=== PATIENT | male | born 1990 | race Caucasian/White ===

== ENCOUNTER 2022-03-08 18:02 | Emergency (ER) | payer MEDICAID ==
[~2022-03-08] VITALS: Ht 180.3 cm; Wt 86.3 kg
[2022-03-08 18:05] VITALS: BP 171/81
== END 2022-03-08 20:49 | disposition home or self-care (01) ==
LOC: ER 18:02
DX: M25.511 Pain in right shoulder (principal); M25.561 Pain in right knee; Z88.2 Allergy status to sulfonamides; W18.39XA Other fall on same level, initial encounter; Y93.89 Activity, other specified; Y92.89 Other specified places as the place of occurrence of the external cause; Y99.8 Other external cause status
CPT/HCPCS: 73030; 73564; 99284